=== PATIENT | female | born 1990 | race American Indian/Alaskan Native ===

== ENCOUNTER 2019-01-13 17:04 | Emergency (ER) | payer OTHER ==
[2019-01-13 17:13] VITALS: BP 108/72
--- NOTE | 2019-01-13 17:16 | Emergency Department Report ---
Blank Doc - Documentation Documentation: This is a 28-year-old female that presents with pelvic discomfort. Patient was sent by Ankit Villalba for ultrasound. This initial assessment/diagnostic orders/clinical plan/treatment(s) is/are subject to change based on patient's health status, clinical progression and re-assessment by fellow clinical providers in the ED. Further treatment and workup at subsequent clinical providers discretion. Patient/guardians urged not to elope from the ED as their condition may be serious if not clinically assessed and managed. Initial orders include: 1- Patient sent to [facility] for further evaluation and treatment 2- labs 3- US OB 4- UA
[2019-01-13 17:29] LABS: Basophils # (Auto) 0.1 K/mm3 (0.0-0.1); Basophils % (Auto) 1.1 % (0.0-1.8); Eosinophils % (Auto) 0.4 % (0.0-4.3); Hematocrit 41.4 % (30.3-42.9); Hemoglobin 14.2 gm/dl (10.1-14.3); Lymphocytes % (Auto) 31.6 % (13.4-35.0); Mean Corpuscular HGB Conc 34 % (30-34); Mean Corpuscular Volume 96 fl (79-97); Monocytes # (Auto) 0.5 K/mm3 (0.0-0.8); Monocytes % (Auto) 8.2 % (0.0-7.3); Red Blood Count 4.33 M/mm3 (3.65-5.03); Red Cell Distribution Width 13.8 % (13.2-15.2)
[2019-01-13 17:41] LABS: BUN/Creatinine Ratio 9; Blood Urea Nitrogen 8 mg/dL (7-17); Calcium 9.5 mg/dL (8.4-10.2); Hemolysis Index 13
[2019-01-13 18:01] LABS: Platelet Count 136 K/mm3 (140-440)
[2019-01-13 19:12] LABS: Bilirubin,Urine NEG (Negative); Blood,Urine NEG (Negative); Color,Urine Yellow (Yellow); Mucus,Urine 2+ /HPF; RBC,Urine < 1.0 /HPF (0.0-6.0)
--- NOTE | 2019-01-13 19:20 | Emergency Department Report ---
ED Abdominal Pain HPI - General Chief Complaint: Abdominal Pain Stated Complaint: DOCTOR REFERRAL Time Seen by Provider: 01/13/19 17:09 Source: patient Mode of arrival: Ambulatory Limitations: No Limitations - History of Present Illness Initial Comments: Patient is a 28-year-old female who was sent to the ER today by Dr. Cash to rule out an ectopic . She pain complaining of colicky abdominal pain so we sent her here for an ultrasound. 1. Last menstrual cycle 11/27/2018. she denies any vaginal bleeding or discharge Severity scale (0 -10): 0 - Related Data Allergies Allergy/AdvReac Type Severity Reaction Status Date / Time No Known Allergies Allergy Verified 06/01/16 23:41 ED Review of Systems ROS: Stated complaint: DOCTOR REFERRAL Other details as noted in HPI Comment: All other systems reviewed and negative ED Past Medical Hx - Past Medical History Previous Medical History?: Yes Hx Sickle Cell Disease: (Sister) Hx HIV: No Additional medical history: MVP - Surgical History Past Surgical History?: No - Family History Family history: no significant - Social History Smoking Status: Never Smoker Substance Use Type: None ED Physical Exam - General Limitations: No Limitations General appearance: alert - Head Head exam: Present: atraumatic, normocephalic - Eye Eye exam: Present: normal appearance - ENT ENT exam: Present: mucous membranes moist - Neck Neck exam: Present: normal inspection - Respiratory Respiratory exam: Present: normal lung sounds bilaterally - Cardiovascular Cardiovascular Exam: Present: regular rate - GI/Abdominal GI/Abdominal exam: Present: soft, normal bowel sounds - Extremities Exam Extremities exam: Present: normal inspection, full ROM - Back Exam Back exam: Present: normal inspection, full ROM. Absent: CVA tenderness (R), CVA tenderness (L) - Neurological Exam Neurological exam: Present: alert, oriented X3 ED Course Vital Signs 01/13/19 17:09 Temperature 98.3 F Pulse Rate 75 Respiratory 18 Rate Blood Pressure 108/72 O2 Sat by Pulse 98 Oximetry ED Medical Decision Making - Lab Data Result diagrams: 01/13/19 17:17 01/13/19 17:17 - Radiology Data Radiology results: report reviewed, image reviewed - Medical Decision Making Intrauterine noted on ultrasound. Beta Quant 331. Blood type Rh+. Plan discharge patient shares that she was not ready for this and is going to seek an . I referred her back to Dr. Cash. Labs 01/13/19 01/13/19 01/13/19 17:17 17:17 17:17 WBC 6.4 RBC 4.33 Hgb 14.2 Hct 41.4 MCV 96 MCH 33 H MCHC 34 RDW 13.8 Plt Count 136 L Lymph % (Auto) 31.6 Henderson % (Auto) 8.2 H Eos % (Auto) 0.4 Baso % (Auto) 1.1 Lymph # 2.0 Henderson # 0.5 Eos # 0.0 Baso # 0.1 Seg Neutrophils % 58.7 Seg Neutrophils # 3.8 Sodium 138 Potassium 3.5 L Chloride 101.4 Carbon Dioxide 23 Anion Gap 17 BUN 8 Creatinine 0.9 Estimated GFR > 60 BUN/Creatinine Ratio 9 Glucose 96 Calcium 9.5 HCG, Quant 331.3 H Urine Color Urine Turbidity Urine pH Ur Specific [place] Urine Protein Urine Glucose (UA) Urine Ketones Urine Blood Urine Nitrite Urine Bilirubin Urine Urobilinogen Ur Leukocyte Esterase Urine WBC (Auto) Urine RBC (Auto) U Epithel Cells (Auto) Urine Mucus Blood Type 01/13/19 01/13/19 18:13 Unknown WBC RBC Hgb Hct MCV MCH MCHC RDW Plt Count Lymph % (Auto) Henderson % (Auto) Eos % (Auto) Baso % (Auto) Lymph # Henderson # Eos # Baso # Seg Neutrophils % Seg Neutrophils # Sodium Potassium Chloride Carbon Dioxide Anion Gap BUN Creatinine Estimated GFR BUN/Creatinine Ratio Glucose Calcium HCG, Quant Urine Color Yellow Urine Turbidity Clear Urine pH 6.0 Ur Specific [place] 1.036 H Urine Protein 30 mg/dl Urine Glucose (UA) Neg Urine Ketones 20 Urine Blood Neg Urine Nitrite Neg Urine Bilirubin Neg Urine Urobilinogen 2.0 Ur Leukocyte Esterase Neg Urine WBC (Auto) 1.0 Urine RBC (Auto) < 1.0 U Epithel Cells (Auto) 3.0 Urine Mucus 2+ Blood Type AB POSITIVE Vital Signs 01/13/19 17:09 Temperature 98.3 F Pulse Rate 75 Respiratory 18 Rate Blood Pressure 108/72 O2 Sat by Pulse 98 Oximetry Critical care attestation.: If time is entered above; I have spent that time in minutes in the direct care of this critically ill patient, excluding procedure time. ED Disposition Clinical Impression: IUP (intrauterine ), incidental Disposition: DC-01 TO HOME OR SELFCARE Is pt being admited?: No Does the pt Need Aspirin: No Condition: Stable Instructions: (ED) Additional Instructions: YOUR BLOOD TYPE IS RH POS PELVIC REST TYLENOL FOR PAIN FOLLOW UP OBGYN Referrals: PRIMARY CARE, [Primary Care Provider] - 3-5 Days Time of Disposition: 19:42
--- NOTE | 2019-01-13 19:39 | Ultrasound Report ---
PROCEDURE: US OB TRANSVAGINAL TECHNIQUE: Ultrasound obstetrical transvaginal HISTORY: pelvic pain COMPARISONS: FINDINGS: There is a small sac seen centrally within the uterus with mean sac diameter of 0.44 cm corresponding to estimated gestational age 5 weeks 1 day by sac size. No pole or yolk sac identified at this time Right ovary is 3. By 2.2 x 3.0 cm. There is a 1.8 cm right ovarian cyst Left ovary 3.2 x 1.1 x 2.4 cm. 1.3 cm left ovarian cyst No free fluid identified within the cul-de-sac Uterus is 8.6 cm in length IMPRESSION: Small sac within the uterus probable early gestational sac. No pole identified at this time. Co ntinued follow-up recommended. This document is electronically signed by Vito Mi MD., January 13 2019 07:37:41 PM ET
--- NOTE | 2019-01-13 19:40 | Ultrasound Report ---
PROCEDURE: US OB <= 14 WEEKS FETUS TECHNIQUE: HISTORY: pelvic pain COMPARISONS: FINDINGS: There is a small sac seen centrally within the uterus with mean sac diameter of 0.44 cm corresponding to estimated gestational age 5 weeks 1 day by sac size. No pole or yolk sac identified at this time Right ovary is 3. By 2.2 x 3.0 cm. There is a 1.8 cm right ovarian cyst Left ovary 3.2 x 1.1 x 2.4 cm. 1.3 cm left ovarian cyst No free fluid identified within the cul-de-sac Uterus is 8.6 cm in length IMPRESSION: Small sac within the uterus probable early gestational sac. No pole identified at this time. Co ntinued follow-up recommended. . This document is electronically signed by Vito Mi MD., January 13 2019 07:38:36 PM ET
== END 2019-01-13 19:57 | disposition home or self-care (01) ==
LOC: ED 17:04
DX: O26.891 Other specified pregnancy related conditions, first trimester (principal); R10.9 Unspecified abdominal pain; Z3A.01 Less than 8 weeks gestation of pregnancy
CPT/HCPCS: 36415; 76801; 76817; 80048; 81001; 84702; 85025; 86900; 86901

== ENCOUNTER 2019-01-14 11:55 | Emergency (ER) | payer OTHER ==
[2019-01-14 13:37] LABS: Basophils % (Auto) 0.4 % (0.0-1.8); Eosinophils % (Auto) 0.8 % (0.0-4.3); Hematocrit 42.1 % (30.3-42.9); Hemoglobin 14.3 gm/dl (10.1-14.3); Lymphocytes # (Auto) 1.5 K/mm3 (1.2-5.4); Lymphocytes % (Auto) 29.3 % (13.4-35.0); Mean Corpuscular HGB Conc 34 % (30-34); Mean Corpuscular Volume 97 fl (79-97); Monocytes # (Auto) 0.4 K/mm3 (0.0-0.8); Monocytes % (Auto) 6.9 % (0.0-7.3); Red Blood Count 4.35 M/mm3 (3.65-5.03); Red Cell Distribution Width 14.1 % (13.2-15.2)
[2019-01-14 13:53] LABS: INR 0.98 (0.87-1.13)
[2019-01-14 13:54] LABS: Partial Thromboplastin Time 28.1 Sec. (24.2-36.6)
[2019-01-14 14:17] LABS: Platelet Count 126 K/mm3 (140-440)
[2019-01-14] MEDS ORDERED: NACL 0.9% 1000 ML 1,000 ML IV ONE (14:21)
[2019-01-14 14:32] VITALS: BP 135/83
[2019-01-14 14:48] LABS: Alanine Aminotransferase 10 units/L (7-56); Albumin 4.2 g/dL (3.9-5); BUN/Creatinine Ratio 10; Blood Urea Nitrogen 8 mg/dL (7-17); Calcium 9.2 mg/dL (8.4-10.2); Hemolysis Index 18
--- NOTE | 2019-01-14 15:40 | Emergency Department Report ---
<KVNG ALLRED - Last Filed: 01/14/19 15:36> ED General Adult HPI - General Chief complaint: Syncope Stated complaint: SYNCOPE Time Seen by Provider: 01/14/19 13:08 Source: EMS Mode of arrival: Ambulatory Limitations: No Limitations - History of Present Illness Initial comments: Patient presents to the ED with a chief complaint of syncopal episode. 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 Shilo Cash, patient had a syncopal episode. Patient states she stood up from her chair and felt very weak and then passed out. Patient states her vaginal bleeding has significantly decreased since yesterday and denies any shortness breath, chest pain, or abdominal pain. Patient states she is having some mild pelvic cramping but other than that she has no pain -: Sudden Severity scale (0 -10): 0 Improves with: none Worsens with: none Associated Symptoms: denies other symptoms Treatments Prior to Arrival: none - Related Data Allergies Allergy/AdvReac Type Severity Reaction Status Date / Time No Known Allergies Allergy Verified 06/01/16 23:41 ED Review of Systems Comment: All other systems reviewed and negative Constitutional: denies: chills, fever Eyes: denies: eye pain, eye discharge, vision change ENT: denies: ear pain, throat pain Respiratory: denies: cough, shortness of breath, wheezing Cardiovascular: denies: chest pain, palpitations Endocrine: no symptoms reported Gastrointestinal: denies: abdominal pain, nausea, diarrhea Genitourinary: denies: urgency, dysuria, discharge Musculoskeletal: denies: back pain, joint swelling, arthralgia Skin: denies: rash, lesions Neurological: denies: headache, weakness, paresthesias Psychiatric: denies: anxiety, depression Hematological/Lymphatic: denies: easy bleeding, easy bruising ED Past Medical Hx - Past Medical History Previous Medical History?: Yes Hx Hypertension: No Hx CVA: No Hx Heart Attack/AMI: No Hx Congestive Heart Failure: No Hx Diabetes: No Hx Deep Vein Thrombosis: No Hx Pulmonary Embolism: No Hx GERD: No Hx Liver Disease: No Hx Renal Disease: No Hx of Cancer: No Hx Sickle Cell Disease: No (Sister) Hx Arthritis: No Hx Headaches / Migraines: No Hx Seizures: No Hx Kidney Stones: No Hx Psychiatric Treatment: Yes (anxiety depression) Hx Asthma: No Hx COPD: No Hx Tuberculosis: No Hx Dementia: No Hx HIV: No Additional medical history: MVP - Surgical History Past Surgical History?: No Hx Coronary Stent: No Hx Open Heart Surgery: No Hx Pacemaker: No Hx Internal Defibrillator: No Hx Cholecystectomy: No Hx Appendectomy: No Hx Breast Surgery: No - Social History Smoking Status: Never Smoker Substance Use Type: None ED Physical Exam - General Limitations: No Limitations General appearance: alert, in no apparent distress - Head Head exam: Present: atraumatic, normocephalic - Eye Eye exam: Present: normal appearance, PERRL, EOMI - ENT ENT exam: Present: mucous membranes moist - Neck Neck exam: Present: normal inspection - Respiratory Respiratory exam: Present: normal lung sounds bilaterally. Absent: respiratory distress, wheezes, rales - Cardiovascular Cardiovascular Exam: Present: regular rate, normal rhythm. Absent: systolic murmur, diastolic murmur, rubs, gallop - GI/Abdominal GI/Abdominal exam: Present: soft, normal bowel sounds. Absent: distended, tenderness - Extremities Exam Extremities exam: Present: normal inspection - Back Exam Back exam: Present: normal inspection - Neurological Exam Neurological exam: Present: alert, oriented X3, CN II-XII intact. Absent: motor sensory deficit - Psychiatric Psychiatric exam: Present: normal affect, normal mood - Skin Skin exam: Present: warm, dry, intact, normal color. Absent: rash ED Medical Decision Making - Lab Data Result diagrams: 01/14/19 13:23 01/14/19 13:23 Lab Results 01/14/19 01/14/19 01/14/19 Range/Units 13:23 13:23 13:23 WBC 5.2 (4.5-11.0) K/mm3 RBC 4.35 (3.65-5.03) M/mm3 Hgb 14.3 (10.1-14.3) gm/dl Hct 42.1 (30.3-42.9) % MCV 97 (79-97) fl MCH 33 H (28-32) pg MCHC 34 (30-34) % RDW 14.1 (13.2-15.2) % Plt Count 126 L (140-440) K/mm3 Lymph % (Auto) 29.3 (13.4-35.0) % Lewis % (Auto) 6.9 (0.0-7.3) % Eos % (Auto) 0.8 (0.0-4.3) % Baso % (Auto) 0.4 (0.0-1.8) % Lymph # 1.5 (1.2-5.4) K/mm3 Lewis # 0.4 (0.0-0.8) K/mm3 Eos # 0.0 (0.0-0.4) K/mm3 Baso # 0.0 (0.0-0.1) K/mm3 Seg Neutrophils % 62.6 (40.0-70.0) % Seg Neutrophils # 3.3 (1.8-7.7) K/mm3 PT 13.6 (12.2-14.9) Sec. INR 0.98 (0.87-1.13) APTT 28.1 (24.2-36.6) Sec. Sodium 138 (137-145) mmol/L Potassium 4.0 (3.6-5.0) mmol/L Chloride 102.1 (98-107) mmol/L Carbon Dioxide 23 (22-30) mmol/L Anion Gap 17 mmol/L BUN 8 (7-17) mg/dL Creatinine 0.8 (0.7-1.2) mg/dL Estimated GFR > 60 ml/min BUN/Creatinine Ratio 10 % Glucose 82 (65-100) mg/dL Calcium 9.2 (8.4-10.2) mg/dL Total Bilirubin 1.60 H (0.1-1.2) mg/dL AST 16 (5-40) units/L ALT 10 (7-56) units/L Alkaline Phosphatase 45 (35-129) units/L Total Protein 7.3 (6.3-8.2) g/dL Albumin 4.2 (3.9-5) g/dL Albumin/Globulin Ratio 1.4 % HCG, Quant (0-4) mIU/mL Blood Type Antibody Screen 01/14/19 01/14/19 Range/Units 13:23 13:42 WBC (4.5-11.0) K/mm3 RBC (3.65-5.03) M/mm3 Hgb (10.1-14.3) gm/dl Hct (30.3-42.9) % MCV (79-97) fl MCH (28-32) pg MCHC (30-34) % RDW (13.2-15.2) % Plt Count (140-440) K/mm3 Lymph % (Auto) (13.4-35.0) % Lewis % (Auto) (0.0-7.3) % Eos % (Auto) (0.0-4.3) % Baso % (Auto) (0.0-1.8) % Lymph # (1.2-5.4) K/mm3 Lewis # (0.0-0.8) K/mm3 Eos # (0.0-0.4) K/mm3 Baso # (0.0-0.1) K/mm3 Seg Neutrophils % (40.0-70.0) % Seg Neutrophils # (1.8-7.7) K/mm3 PT (12.2-14.9) Sec. INR (0.87-1.13) APTT (24.2-36.6) Sec. Sodium (137-145) mmol/L Potassium (3.6-5.0) mmol/L Chloride (98-107) mmol/L Carbon Dioxide (22-30) mmol/L Anion Gap mmol/L BUN (7-17) mg/dL Creatinine (0.7-1.2) mg/dL Estimated GFR ml/min BUN/Creatinine Ratio % Glucose (65-100) mg/dL Calcium (8.4-10.2) mg/dL Total Bilirubin (0.1-1.2) mg/dL AST (5-40) units/L ALT (7-56) units/L Alkaline Phosphatase (35-129) units/L Total Protein (6.3-8.2) g/dL Albumin (3.9-5) g/dL Albumin/Globulin Ratio % HCG, Quant 100.8 H (0-4) mIU/mL Blood Type AB POSITIVE Antibody Screen Negative ED Disposition Clinical Impression: Syncope, Vaginal bleeding Disposition: TO HOME OR SELFCARE Condition: Stable Instructions: Syncope (ED), Ectopic (ED), Spontaneous Miscarriage (ED) Referrals: SHILO CASH MD [Staff Physician] - 3-5 Days <CATHERINE PETERS - Last Filed: 01/14/19 19:43> ED Review of Systems ROS: Stated complaint: SYNCOPE Other details as noted in HPI ED Course Vital Signs 01/14/19 01/14/19 01/14/19 12:28 13:00 13:32 Temperature 98.6 F 98.1 F Pulse Rate 86 89 Pulse Rate [ 89 Lying] Respiratory 18 18 Rate Blood Pressure 116/76 Blood Pressure 107/72 [Lying] Blood Pressure 116/76 135/83 [Right] O2 Sat by Pulse 100 Oximetry - Consultations Consultation #1: 01/14/19 18:21 Pt signed out to me by Dr Allred, US pending. Transvag US report shows right ovarian cyst and likely miscarriage; US report states possible right sided ectopic w/ internal echoes. Dr Cash consulted, here at bedside to see pt. US report relayed. 01/14/19 18:32 Dr Cash spoke w/ pt. Will have pt follow-up in his office to follow her hcg levels. May be discharged home. ED Medical Decision Making - Lab Data Result diagrams: 01/14/19 13:23 01/14/19 13:23 Critical care attestation.: If time is entered above; I have spent that time in minutes in the direct care of this critically ill patient, excluding procedure time. ED Disposition Is pt being admited?: No Time of Disposition: 18:36
--- NOTE | 2019-01-14 17:28 | Ultrasound Report ---
PROCEDURE: US OB <= 14 WEEKS FETUS HISTORY: miscarriage FINDINGS: Real-time ultrasound the pelvis was performed by transabdominal and endovaginal technique. Comparison is made to the prior examination of January 13, at which time a possible early gestational s ac was seen. On the prior examination, no intrauterine gestational sac is identified. The endometrial stripe measu res 1.0 cm which is within normal limits. The right ovary measures 3.7 x 2.8 x 2.9 cm and contains a cyst 1.6 x 1.4 x 1.7 cm. There is a an ech ogenic focus within this cystic structure which could potentially represent a pole, and there i s peripheral vascularity around the cystic structure. Ectopic gestation is not excluded. No evidence of cardiac activity is seen. The cystic structure measures 1.6 x 1.4 x 1.7 cm. The left ovary measures 3.0 x 1.4 x 2.7 cm and appears unremarkable. IMPRESSION: No intrauterine gestation is seen Right ovarian cystic lesion with internal echogenic focus which could represent a pole. Ectopic gestation is not excluded. Follow-up ultrasound and/or quantitative hCG are recommended Normal left ovary No significant free fluid is seen This document is electronically signed by Da Valdez MD., January 14 2019 05:26:01 PM ET
--- NOTE | 2019-01-14 17:39 | Ultrasound Report ---
PROCEDURE: US OB TRANSVAGINAL TECHNIQUE: Ultrasound obstetrical transvaginal HISTORY: miscarriage COMPARISONS: Comparison is dated January 13, 2019 FINDINGS: Gestational sac previously identified within the uterus not identified on today's exam suggestive of miscarriage. Endometrial thickness 0.98 cm. No myometrial abnormality is seen No free fluid seen. Right ovary is 3.7 x 2.8 x 2.9 cm there is a complex ovarian cyst 1.7 cm. Left ovary is 2.0 x 1.4 x 2.7 cm. IMPRESSION: No intrauterine gestation identified on today's exam. Findings suggestive of miscarriage. Continued f ollow up correlation with beta hCG recommended 1.7 cm complex right ovarian cyst noted. This document is electronically signed by Vito Mi MD., January 14 2019 05:37:11 PM ET
== END 2019-01-14 18:48 | disposition home or self-care (01) ==
LOC: ED 11:55
DX: R55 Syncope and collapse (principal); N93.9 Abnormal uterine and vaginal bleeding, unspecified; F32.9 Major depressive disorder, single episode, unspecified
CPT/HCPCS: 36415; 76801; 76817; 80053; 84702; 85025; 85610; 85730; 86850; 86900; 86901; 96360; 99284; J7030